=== PATIENT | female | born 1990 | race Caucasian/White ===

== ENCOUNTER 2018-09-19 20:27 | Inpatient (IN) | payer MEDICAID, OTHER ==
--- NOTE | 2018-09-19 22:01 | History and Physical Report ---
History of Present Illness Date of examination: 09/19/18 Date of admission: 09/19/18 20:27 Chief complaint: Induction of labor History of present illness: Pt is a 28 yo HF EDC 09/29/18; EGA 38 4/7 weeks presents for induction of labor due to IDDM and suspected macrosomia. She received care at [facility] since 10 weeks and course complicated by IDDM on Insulin NPH 8units + Reg 12units Q AM + 20units NPH + Reg 25units Q PM records are available and GBS is negative. Past History Past Medical History: diabetes (IDDM) Past Surgical History: no surgical history Social history: no significant social history, single - Obstetrical History Expected Date of Delivery: 09/29/18 Actual Gestation: 38 Week(s) 4 Day(s) Medications and Allergies Allergies Allergy/AdvReac Type Severity Reaction Status Date / Time No Known Allergies Allergy Unverified 09/19/18 23:17 Review of Systems All systems: negative - Vital Signs Vital signs: Vital Signs Pulse BP 73 113/59 09/19/18 21:19 09/19/18 21:19 Temp Pulse Resp BP Pulse Ox 73 113/59 09/19/18 21:19 09/19/18 21:19 - Physical Exam Breasts: Positive: deferred Cardiovascular: Regular rate Lungs: Positive: Clear to auscultation Abdomen: Positive: normal appearance Genitourinary (Female): Positive: normal external genitalia Uterus: Positive: enlarged Extremities: Positive: normal - Obstetrical FHR: category 1 Uterine Contraction Monitor Mode: External Cervical Dilatation: 0 (per nurse) Cervical Effacement Percentage: 50 (per nurse) station: -3 Uterine Contraction Pattern: Absent Results All other labs normal. Assessment and Plan - Patient Problems (1) 38 weeks gestation of Onset Date: 09/19/18 Current Visit: Yes Status: Acute Plan to address problem: A: IUP @ 38 4/7 weeks IDDM Suspected macrosomia P: Admit to L&D for induction of labor Accuchecks (2) Diabetes mellitus, insulin dependent (IDDM), controlled Onset Date: 09/19/18 Current Visit: Yes Status: Chronic
[2018-09-19] MEDS ORDERED: MINERAL OIL PO PRN (23:26)
[2018-09-19] MEDS ORDERED: BRETHINE SUB-Q PRN (23:26)
[2018-09-19] MEDS ORDERED: SUBLIMAZE IV PRN (23:26)
[2018-09-19] MEDS ORDERED: BRETHINE IVP PRN (23:26)
[2018-09-19] MEDS ORDERED: NARCAN 0.4 MG/1 ML IV PRN (23:26)
[2018-09-19] MEDS ORDERED: PHENERGAN PO PRN (23:26)
[2018-09-19] MEDS ORDERED: CERVIDIL VG ONE (23:26)
[2018-09-19] MEDS ORDERED: XYLOCAINE 2% INFILTRATI ONE (23:26)
[2018-09-19] MEDS ORDERED: STADOL IV PRN (23:26)
[2018-09-19] MEDS ORDERED: PITOCin/NS 20 UNIT/1000ML DRIP 20 UNITS/1,000 ML BAG IV SCH (23:45)
[2018-09-19] MEDS ORDERED: PITOCin/NS 30 UNIT/500ML 30 UNITS/500 ML BAG IV SCH ×2 (23:45)
[2018-09-20 00:02] LABS: Hematocrit 34.1 % (30.3-42.9); Hemoglobin 12.1 gm/dl (10.1-14.3); Mean Corpuscular HGB Conc 36 % (30-34); Mean Corpuscular Volume 90 fl (79-97); Platelet Count 209 K/mm3 (140-440); Red Blood Count 3.77 M/mm3 (3.65-5.03); Red Cell Distribution Width 14.8 % (13.2-15.2)
[2018-09-20] MEDS: LACTATED RINGERS 1,000 ML IV SCH (00:33)
--- NOTE | 2018-09-20 10:30 | Progress Note ---
Assessment and Plan - Patient Problems (1) 38 weeks gestation of Onset Date: 09/19/18 Current Visit: Yes Status: Acute (2) Diabetes mellitus, insulin dependent (IDDM), controlled Onset Date: 09/19/18 Current Visit: Yes Status: Chronic Plan to address problem: Blood glucose stable Continue accuchecks per protocol (3) Encounter for induction of labor Current Visit: Yes Status: Acute Plan to address problem: Continue routine labor orders Continue cervical ripening with Cervidil. Remove 12 hours post-insertion. May shower and have a regular diet. If no cervical change, insert another cervidil per protocol or start low-dose pitocin. Anticipate vaginal delivery Subjective - Subjective Date of service: 09/20/18 Principal diagnosis: IUP @ 38 weeks 5 days; IOL secondary to IDDM Patient reports: movement normal, contractions, no loss of fluid, no vaginal bleeding Objective - Vital Signs Vital Signs: Vital Signs - 12hr 09/19/18 09/20/18 09/20/18 22:54 01:28 02:29 Temperature 98.4 F Pulse Rate 72 71 Respiratory 18 Rate Blood Pressure 108/59 101/56 09/20/18 09/20/18 09/20/18 03:28 04:28 04:45 Temperature 98.2 F Pulse Rate 72 71 Respiratory 18 Rate Blood Pressure 116/61 102/55 09/20/18 09/20/18 08:15 09:26 Temperature 98.3 F Pulse Rate 79 Respiratory 18 Rate Blood Pressure 101/56 - Exam FHR: auscultation normal, category 1 FHR comments: baseline 130, moderate variability, 15x15 accels, no decels Uterine Contraction Pattern: Irregular - Labs Labs: Abnormal Labs 09/19/18 09/20/18 23:00 01:43 MCHC 36 H POC Glucose 69 L Laboratory Results - last 24 hr 09/19/18 09/19/18 09/20/18 23:00 23:00 01:43 WBC 7.8 RBC 3.77 Hgb 12.1 Hct 34.1 MCV 90 MCH 32 MCHC 36 H RDW 14.8 Plt Count 209 POC Glucose 69 L Blood Type O POSITIVE Antibody Screen Negative
[2018-09-20] MEDS ORDERED: AFLURIA QUAD 2018-2019 SYRINGE IM ONE (12:00)
--- NOTE | 2018-09-20 18:37 | Ultrasound Report ---
FINAL REPORT EXAM: US OB LIMITED HISTORY: CONFIRM PRESENTATION TECHNIQUE: Ultrasound limited evaluation of the gravid uterus PRIORS: None. FINDINGS: viable intrauterine with documented cardiac activity at 166 beats per minute. presentation is cephalic IMPRESSION: viable early intrauterine with cephalic presentation
--- NOTE | 2018-09-21 07:58 | Progress Note ---
Assessment and Plan A: at 38 weeks, 6 days gestation. IDDM. Suspected macrosomia. P: Pitocin per induction protocol today. Continuous EFM. Continue monitoring of blood glucose. Subjective - Subjective Date of service: 09/21/18 Principal diagnosis: IUP @ 38 weeks 6 days; IOL secondary to IDDM Interval history: Patient has received low dose Pitocin overnight for cervical ripening. Today plan Pitocin per induction protocol. Patient reports: movement normal, contractions, no loss of fluid, no vaginal bleeding Objective - Vital Signs Vital Signs: Vital Signs - 12hr 09/20/18 09/20/18 09/20/18 20:18 20:23 21:18 Temperature 98.4 F Pulse Rate 68 67 Respiratory 18 Rate Blood Pressure 95/52 115/64 09/20/18 09/20/18 09/20/18 22:17 23:17 23:58 Temperature Pulse Rate 73 71 69 Respiratory Rate Blood Pressure 112/63 102/63 104/56 09/21/18 09/21/18 09/21/18 00:18 01:17 03:22 Temperature 98.7 F Pulse Rate 68 69 Respiratory 18 Rate Blood Pressure 104/60 106/56 09/21/18 09/21/18 09/21/18 03:25 04:19 05:19 Temperature Pulse Rate 71 71 70 Respiratory Rate Blood Pressure 104/57 102/52 82/43 09/21/18 09/21/18 09/21/18 06:17 07:18 07:48 Temperature Pulse Rate 71 62 71 Respiratory Rate Blood Pressure 107/60 94/55 85/45 - Exam Abdomen: Present: normal appearance, soft. Absent: distention, tenderness, guarding, rigidity Uterus: Present: normal, fundal height above umbilicus. Absent: tenderness FHR: category 1 Uterine Contraction Monitor Mode: External Uterine Contraction Pattern: Irregular Uterine Contraction Intensity: Mild Extremities: normal - Labs Labs: Abnormal Labs 09/19/18 09/20/18 09/20/18 23:00 01:43 08:21 MCHC 36 H POC Glucose 69 L 65 L 09/20/18 15:19 MCHC POC Glucose 141 H Laboratory Results - last 24 hr 09/19/18 09/20/18 09/20/18 23:00 08:21 15:19 POC Glucose 65 L 141 H RPR Nonreactive 09/20/18 09/21/18 21:19 03:25 POC Glucose 76 76 RPR
[2018-09-21] MEDS ORDERED: PITOCin/NS 30 UNIT/500ML 30 UNITS/500 ML BAG IV SCH (08:00)
[2018-09-21] MEDS: LACTATED RINGERS 1,000 ML IV SCH (17:11)
--- NOTE | 2018-09-21 19:44 | Event Note ---
Date: 09/21/18 SVE 1-40/-4. Category 1 heart rate tracing. Patient desires to continue with induction of labor. Consulted with Dr. Boston re: this patient.
--- NOTE | 2018-09-22 07:48 | Progress Note ---
Assessment and Plan A: at 39 weeks gestation. IDDM. P: Pitocin induction of labor. Anticipate vaginal delivery. Subjective - Subjective Date of service: 09/22/18 Principal diagnosis: at 39 weeks gestation; IDDM Interval history: Patient is having labor induced at term due to IDDM. Patient reports: movement normal, contractions, no loss of fluid, no vaginal bleeding Objective - Vital Signs Vital Signs: Vital Signs - 12hr 09/21/18 09/21/18 09/21/18 20:00 20:31 21:00 Pulse Rate 68 72 69 Blood Pressure 115/64 111/59 127/66 09/21/18 09/21/18 09/21/18 21:31 22:00 22:31 Pulse Rate 63 61 68 Blood Pressure 130/67 104/56 104/55 09/21/18 09/21/18 09/22/18 23:03 23:30 00:01 Pulse Rate 68 71 67 Blood Pressure 116/63 98/56 103/58 09/22/18 09/22/18 00:30 01:01 Pulse Rate 64 63 Blood Pressure 108/57 105/61 - Exam Uterus: Present: normal, fundal height above umbilicus. Absent: tenderness FHR: category 1 Uterine Contraction Monitor Mode: External Cervical Dilatation: 4 Cervical Effacement Percentage: 40 station: -3 Uterine Contraction Pattern: Irregular Uterine Contraction Intensity: Mild Extremities: normal - Labs Labs: Abnormal Labs 09/19/18 09/20/18 09/20/18 23:00 01:43 08:21 MCHC 36 H POC Glucose 69 L 65 L 09/20/18 15:19 MCHC POC Glucose 141 H Laboratory Results - last 24 hr 09/21/18 09/21/18 11:06 18:29 POC Glucose 70 72
[2018-09-22] MEDS ORDERED: PITOCin/NS 30 UNIT/500ML 30 UNITS/500 ML BAG IV SCH (08:00)
[2018-09-22] MEDS: LACTATED RINGERS 1,000 ML IV SCH ×2 (16:12→20:11)
[2018-09-22] MEDS ORDERED: NARCAN 2 MG/2 ML IV PRN (16:36)
--- NOTE | 2018-09-22 19:38 | Anesthesia Consultation ---
Anesthesia Consult and Med Hx Date of service: 09/22/18 - Airway Anesthetic Teeth Evaluation: Good ROM Head & Neck: Adequate Mental/Hyoid Distance: Adequate Mallampati Class: Class II Intubation Access Assessment: Probably Good - Pre-Operative Health Status ASA Pre-Surgery Classification: ASA3 Proposed Anesthetic Plan: Epidural, Spinal - Pulmonary Hx Asthma: No COPD: No Hx Pneumonia: No - Cardiovascular System Hx Hypertension: Yes - Central Nervous System Hx Seizures: No Hx Psychiatric Problems: No - Endocrine Hx Renal Disease: No Hx End Stage Renal Disease: No Hx Insulin Dependent Diabetes: Yes Hx Hypothyroidism: No Hx Hyperthyroidism: No - Hematic Hx Anemia: No Hx Sickle Cell Disease: No - Other Systems Hx Alcohol Use: No Hx Obesity: Yes (BMI 31)
[2018-09-22] MEDS ORDERED: fentaNYL-BUPIV 2 MCG/ML-0.125% 200 MCG/100 ML BAG EPIDURAL SCH (20:00)
[2018-09-23] MEDS ORDERED: BICITRA ONE ×2 (00:59→04:53)
[2018-09-23] MEDS ORDERED: PEPCID IV ONE ×3 (01:00→04:57)
[2018-09-23] MEDS ORDERED: REGLAN ONE ×2 (01:00→04:53)
[2018-09-23] MEDS ORDERED: METHERGINE IM ONE ×2 (01:00→06:48)
[2018-09-23] MEDS ORDERED: ANCEF/STERILE WATER 2 GM/20 ML 0 GM/0 ML SYRINGE IV ONE (01:00)
[2018-09-23] MEDS: LACTATED RINGERS 1,000 ML IV SCH (03:30)
[2018-09-23] MEDS: ZOFRAN IV PRN ×2 (03:30→10:49)
[2018-09-23] MEDS ORDERED: ANCEF/STERILE WATER 2 GM/20 ML 2 GM/20 ML SYRINGE IV ONE (04:54)
[2018-09-23] MEDS ORDERED: REGLAN IV ONE (04:57)
[2018-09-23] MEDS ORDERED: BICITRA PO ONE (04:57)
[2018-09-23] MEDS ORDERED: ANCEF/STERILE WATER 2 GM/20 ML 2 GM/20 ML SYRINGE IV NR (05:00)
[2018-09-23] MEDS ORDERED: PITOCin/NS 20 UNIT/1000ML DRIP 20 UNITS/1,000 ML BAG IV SCH ×2 (05:00→07:00)
[2018-09-23] MEDS ORDERED: LACTATED RINGERS 1,000 ML IV SCH (05:00)
--- NOTE | 2018-09-23 05:07 | Event Note ---
Date: 09/23/18 Patient has had labor induced due to IDDM and possible impending macrosomia. Patient has received Cervidil and Pitocin for cervical ripening and Pitocin induction. Her cervix is now 8/75/-2 to -3. Slow cervical change, lilttle descent so far. Bulging forebag with now palpable structure alongside head ( fingers vs. ? occult cord). Now bloody show is moderate. Abdomen palpates soft. Discussed with patient all of the above and also discussed all of the above with Dr. Boston. Patient states she now wants to have a section. Dr. Boston states he will perform section.
[2018-09-23] MEDS ORDERED: WATER FOR IRRIG STERILE IR ONE (05:25)
[2018-09-23] MEDS ORDERED: NACL 0.9% IR ONE (05:25)
[2018-09-23] MEDS ORDERED: XYLOCAINE MPF 2% ONE ×3 (05:31)
[2018-09-23] MEDS ORDERED: ASTRAMORPH PF 10MG/10ML ONE (05:47)
[2018-09-23 05:49] LABS: Basophils % (Auto) 0.5 % (0.0-1.8); Eosinophils % (Auto) 0.4 % (0.0-4.3); Hematocrit 33.8 % (30.3-42.9); Hemoglobin 11.6 gm/dl (10.1-14.3); Lymphocytes # (Auto) 1.1 K/mm3 (1.2-5.4); Mean Corpuscular HGB Conc 34 % (30-34); Mean Corpuscular Volume 94 fl (79-97); Monocytes # (Auto) 0.6 K/mm3 (0.0-0.8); Monocytes % (Auto) 6.9 % (0.0-7.3); Platelet Count 185 K/mm3 (140-440); Red Blood Count 3.61 M/mm3 (3.65-5.03); Red Cell Distribution Width 14.7 % (13.2-15.2)
[2018-09-23] MEDS ORDERED: NEO SYNEPHRINE/NS Syringe(OR USE) IV ONE (06:06)
--- NOTE | 2018-09-23 06:17 | Operative Report ---
Operative Report Operative Report: Date of procedure: 09/23/2018 Pre-operative diagnosis: 1. Intrauterine at 39-1/7 weeks 2. Insuli n-dependent diabetes mellitus 3. Failed induction of labor 4. Failure to progress Post-operative diagnosis: Same Procedure name(s): Primary low transverse section Surgeon: Simone Boston MD Clinical Research Monitor: None Anesthesia: Epidural anesthesia by Dr. Wong EBL: 700 mL's Findings: A 3900 g male Apgars 8 at 1 minute and 9 at 5 minutes. Nuchal cord 1. Clear amniotic fluid. Normal uterus. Normal tubes and ovaries bilaterally. Procedure: After the patient was prepped and draped in usual sterile fashion, and after satisfactory level of epidural anesthesia was obtained, the skin knife was used to make a transverse skin incision. The incision was excised down to layer of the fascia, which was nicked in the midline and extended laterally using the Bovie cautery. The rectus muscles were dissected off the rectus fascia both superiorly and inferiorly. The rectus bellies in the midline, and the peritoneum was entered under direct visualization. The peritoneal incision was extended superiorly and inferiorly. A bladder flap was created and the bladder blade was then placed. The uterus was scored in a curvilinear linear fashion, entered in the midline revealing clear amniotic fluid. The infant's head was delivered onto the surgical field, and the oropharynx and nasopharynx were bulb suctioned. The rest of the 's body was delivered, cord was doubly clamped and cut and the infant was handed to the waiting respiratory team. Cord blood was then obtained. The placenta was manually removed from the uterus, and the uterus removed from its normal anatomical position. After gentle uterine lavage, the incision was inspected and found to be without extensions. It was then closed in 2 layers using 0 Vicryl suture in a running interlocking fashion, the second layer imbricating the first. After good hemostasis was achieved, copious amounts or irrigation was performed, and the gutters were suctioned free of blood and blood clots. Tisseel sealant was sprayed across the uterine incision. The uterus was then returned to its normal anatomical position, and after excellent hemostasis assured, the peritoneum was re-approximated using 3-0 Vicryl suture in a running interlocking fashion, and then the rectus muscles were re-approximated using 3-0 Vicryl suture in a [id number] configuration. The fascia was then re- approximated using 0 Vicryl suture in running interlocking fashion. The subcutaneous layer was made hemostatic using Bovie cautery, the Tisseel sealant was sprayed across the fascial incision and the skin edges re-approximated using 4-0 Vicryl suture in a sub-cuticular fashion. Patient tolerated the procedure well was transported to recovery in stable condition.
[2018-09-23] MEDS ORDERED: NORCO 5/325 PO PRN (06:19)
[2018-09-23] MEDS ORDERED: TORADOL IV PRN (06:19)
[2018-09-23] MEDS ORDERED: NARCAN 0.4 MG/1 ML IV PRN (06:19)
[2018-09-23] MEDS ORDERED: TUCKS PAD TP PRN (06:19)
[2018-09-23] MEDS ORDERED: TYLENOL PO PRN (06:19)
[2018-09-23] MEDS ORDERED: LANSINOH TP PRN (06:19)
[2018-09-23] MEDS ORDERED: MILK OF MAGNESIA PO PRN (06:19)
[2018-09-23] MEDS ORDERED: MYLICON PO PRN (06:19)
[2018-09-23] MEDS ORDERED: PHENERGAN PR PRN (06:19)
[2018-09-23] MEDS ORDERED: SENOKOT PO PRN (06:19)
[2018-09-23] MEDS ORDERED: D50W (25GM) Syringe IV PRN (06:22)
[2018-09-23] MEDS ORDERED: D5LR 1,000 ML IV SCH (07:00)
[2018-09-23] MEDS ORDERED: SODIUM CHLORIDE FLUSH SYRINGE 10 ML IV NR (07:00)
[2018-09-23] MEDS: ANCEF/NS 1 GM/50 ML 1 GM/50 ML BAG IV SCH ×2 (14:38→23:12)
[2018-09-23 17:38] LABS: Hemoglobin 9.2 gm/dl (10.1-14.3)
[2018-09-23] MEDS: PERCOCET 5/325 PO PRN (18:37)
[2018-09-23] MEDS: HumuLIN R SUB-Q SCH (23:11)
[2018-09-24] MEDS: IBUPROFEN PO PRN ×2 (03:40→17:35)
[2018-09-24] MEDS: PERCOCET 5/325 PO PRN ×2 (03:42→17:35)
[2018-09-24] MEDS ORDERED: BOOSTRIX IM ONE ×2 (04:15→06:00)
[2018-09-24] MEDS ORDERED: M-M-R II VACCINE SUB-Q ONE (06:00)
--- NOTE | 2018-09-24 10:44 | Progress Note ---
Assessment and Plan (1) Primary Section Onset Date: 09/19/18 Current Visit: Yes Status: Acute Plan to address problem: POD#1-Stable Routine PP/PO orders Pain well controlled Pt ambulating in room Anticipate discharge home in 24-48 hours (2) Diabetes mellitus, insulin dependent (IDDM), controlled Onset Date: 09/19/18 Current Visit: Yes Status: Chronic Good Glycemic control Continue Accu checks and current insulin Therapy Subjective - Subjective Date of service: 09/24/18 Principal diagnosis: POD#1 s/p Primary C/S; IDDM Interval history: See H&P and operative note Patient reports: appetite normal, voiding normally, pain well controlled, flatus, ambulating normally, no bowel movement Fannin: doing well, other (breast/Bottle) Objective - Vital Signs Latest vital signs: Vital Signs Temp Pulse Resp BP BP Pulse Ox 09/24/18 08:48 97.5 F L 65 20 88/43 95 09/24/18 04:56 98.1 F 64 18 94/51 97 09/24/18 00:30 98.2 F 71 18 102/46 09/23/18 21:30 98 F 67 16 102/51 99 09/23/18 17:32 98 F 72 18 90/42 09/23/18 12:14 98.3 F 66 18 96/57 Intake and Output 09/23/18 09/24/18 09/24/18 23:59 07:59 15:59 Intake Total 920 240 Output Total 600 800 Balance 320 -560 Intake: Oral 680 Intake, Free Water 240 240 Output: Urine 600 800 Indwelling Catheter 600 Void 800 Other: Total, Intake Amount 200 Total, Output Amount 600 800 # Voids Indwelling Catheter 2 Void 2 - Exam Breasts: Present: normal, Cardiovascular: Present: Regular rate, Normal S1, Normal S2, No murmurs Lungs: Present: Clear to auscultation, Normal air movement Abdomen: Present: normal appearance, soft, tenderness (as expected Post-op), normal bowel sounds. Absent: distention Vulva: both: normal Uterus: Present: firm, fundal height below umbilicus (-1) Extremities: Present: normal Deep Tendon Reflex Grade: Normal +2 Incision: Present: normal, dry, intact, dressed (Pressure dressing CDI, no drain age) - Labs Labs: Abnormal lab results 09/23/18 09/23/18 Range/Units 17:17 23:06 Hgb 9.2 L (10.1-14.3) gm/dl Hct 26.0 L D (30.3-42.9) % POC Glucose 174 H (70-105)
[2018-09-24] MEDS: FEOSOL PO SCH (18:24)
[2018-09-24] MEDS: PRENATAL VITAMIN PO SCH (18:24)
[2018-09-24] MEDS: HumuLIN R SUB-Q SCH (22:42)
[2018-09-25] MEDS: PERCOCET 5/325 PO PRN ×2 (04:39→09:47)
[2018-09-25 09:21] VITALS: BP 86/48
[2018-09-25] MEDS: FEOSOL PO SCH (09:47)
[2018-09-25] MEDS: PRENATAL VITAMIN PO SCH (09:47)
[2018-09-25] MEDS: IBUPROFEN PO PRN (09:47)
--- NOTE | 2018-09-25 14:02 | Event Note ---
Date: 09/25/18 Patient is S/P C/section 2 days ago for failed induction of labor. She was induced for pre-gestational diabetes. She was on insulin during the . Her glucose has been stable since her delivery. She has moved her bowel and is tolerating regular diet well. She wants to go home today. I used office pediatric medical assistant Cyrus to translate for the patient. I told her to continue insulin but I gave her a lower dose to start today. She was told to take 8 regular/8 NPH in AM, 16 regular at diner, 12 NPH at bedtime. She said that she has regular and NPH insulin at home. She was also asked to come to [facility] in one week for wound check and and to bring her glucose log with her.
--- NOTE | 2018-09-25 14:06 | Discharge Summary ---
Providers - Providers Date of Admission: 09/19/18 20:27 Date of discharge: 09/25/18 Attending physician: TOLU CARY MD Primary care physician: TOLU CARY MD Hospitalization Reason for admission: other (Labor induction) Delivery: Procedure: section Discharge diagnosis: IUP at term delivered baby: female Condition at discharge: Stable Disposition: [id number] TO HOME OR SELFCARE - Discharge Diagnoses (1) 38 weeks gestation of Status: Acute (2) Encounter for induction of labor Status: Acute (3) Type 2 diabetes mellitus affecting , antepartum Status: Acute Comment: Patient will continue insulin. See new dosage. Patient will bring glucose log to the office in one week. (4) delivery delivered Status: Acute Plan - Discharge Medications Prescriptions: Ferrous Sulfate [Feosol 325 MG tab] 325 mg PO BID #60 tablet HYDROcodone/APAP 5-325 [Shevlin 5/325] 1 each PO Q6HR PRN #30 tablet PRN Reason: Pain Ibuprofen [Motrin] 800 mg PO Q8HR PRN #30 tablet PRN Reason: Pain, Mild (1-3) Pnv No.95/Ferrous Fum/Folic AC [Prenavite Tablet] 1 each PO DAILY #30 tablet - Provider Discharge Summary Additional instructions: [] Smoking cessation referral if applicable(refer to patient education folder for contact #) [] Refer to [facility]'s [facility] Booklet Call your doctor immediately for: * Fever > 100.5 * Heavy vaginal bleeding ( >1 pad per hour) * Severe persistent headache * Shortness of breath * Reddened, hot, painful area to leg or breast * Drainage or odor from incision. * Keep incision clean and dry at all times and follow doctor's instructions regarding bathing/showering - Follow up plan Follow up: TOLU CARY MD [Primary Care Provider] - 7 Days
== END 2018-09-25 14:40 | disposition home or self-care (01) | DRG 788 ==
LOC: LD 20:27 → OB 09-23 08:43
PROVIDERS: ADMIT Obstetrics & Gynecology; ATTEND Obstetrics & Gynecology
PROC: 3E0P7VZ Introduction of Hormone into Female Reproductive, Via Natural or Artificial Opening (ICD-10-PCS; 2018-09-19)
PROC: 3E033VJ Introduction of Other Hormone into Peripheral Vein, Percutaneous Approach (ICD-10-PCS; 2018-09-19)
PROC: 10D00Z1 Extraction of Products of Conception, Low, Open Approach (ICD-10-PCS; principal; 2018-09-23)
PROC: 3E0234Z Introduction of Serum, Toxoid and Vaccine into Muscle, Percutaneous Approach (ICD-10-PCS; 2018-09-24)
DX: O24.12 Pre-existing type 2 diabetes mellitus, in childbirth (principal); O61.0 Failed medical induction of labor; O62.0 Primary inadequate contractions; E66.9 Obesity, unspecified; O99.214 Obesity complicating childbirth; E11.9 Type 2 diabetes mellitus without complications; O16.4 Unspecified maternal hypertension, complicating childbirth; Z37.0 Single live birth; Z79.4 Long term (current) use of insulin; Z3A.38 38 weeks gestation of pregnancy; Z23 Encounter for immunization
CPT/HCPCS: 36415; 59200; 76815; 82962; 85014; 85018; 85025; 85027; 86592; 86850; 86900; 86901; 90686; 90715; G0378; C9250; J0690; J1815; J2210; J2274; J2370; J2405; J2590; J2765; J7120; J7121